=== PATIENT | female | born 1985 | race Caucasian/White ===

== ENCOUNTER 2017-01-18 13:26 | Emergency (ER) | payer SELFPAY ==
[~2017-01-18] VITALS: Ht 157.5 cm; Wt 76.0 kg
[2017-01-18 13:28] VITALS: Ht 157.5 cm; Wt 76.0 kg
[2017-01-18] MEDS ORDERED: CEPH-443 PO (13:54)
[2017-01-18] MEDS ORDERED: BACTDS PO (13:54)
[2017-01-18] MEDS ORDERED: IBUP-1542 PO (13:55)
[2017-01-18] MEDS ORDERED: LIDOCAINE 1% (MDV) 20 ML INJ SC ONE (14:00)
--- NOTE | 2017-01-18 14:03 | ERD ---
ER Documentation Chief Complaint Date/Time DATE: 01/18/17 TIME: 13:55 Chief Complaint RFA ABCSYLVIA HPI Patient is a 31-year-old female with past medical history of IV drug use presents to the emergency department for concerns of an abscess to her right forearm. Patient states that the abscess is been growing in size over the last few days. Patient states that she did attempt to drain the abscess herself. Patient states that she reports numerous abscesses in the past all over her body.. Patient states that she was admitted 2 weeks ago for IV antibiotics at [facility]. Patient states she left AMA because she was having "withdrawal symptoms." She denies any fevers, chills, nausea, vomiting or loss consciousness. Patient states she was last given her tetanus shot 2 weeks ago. She does report recent drug use. ROS All systems reviewed and are negative except as per history of present illness. Medications Home Meds Active Scripts Ibuprofen* (Motrin*) 600 Mg Tab, 600 MG PO Q6, #30 TAB Prov:JOSE TONY PA-C 01/18/17 Cephalexin* (Keflex*) 500 Mg Capsule, 500 MG PO QID for 10 Days, CAP Prov:JOSE TONY PA-C 01/18/17 Sulfamethoxazole-Trimethoprim* (Bactrim* DS) 800-160 Mg Tab, 1 TAB PO BID for 10 Days, TAB Prov:JOSE TONY PA-C 01/18/17 Physical Exam Vitals Vital Signs Date Time Temp Pulse Resp B/P Pulse Ox O2 Delivery O2 Flow Rate FiO2 01/18/17 13:28 98.1 99 20 117/85 99 Physical Exam GENERAL: Well-developed, well-nourished female. Appears in no acute distress. HEAD: Normocephalic, atraumatic. EYES: Pupils are equally reactive bilaterally. EOMs grossly intact. No conjunctival erythema. ENT: Moist mucous membranes. No uvula deviation. No kissing tonsils. NECK: Supple. No meningismus. Normal range of motion of the neck. LUNG: Clear to auscultation bilaterally. No rhonchi, wheezing, rales or coarse breath sounds. HEART: Regular rate and rhythm. No murmurs, rubs or gallops. EXTREMITIES: Equal pulses bilaterally. No peripheral clubbing, cyanosis or edema. No unilateral leg swelling. NEUROLOGIC: Alert and oriented. Moving all four extremities without any difficulty. Normal speech. Steady gait. SKIN: Numerous scars noted throughout the patient's body consistent with old injected areas. 3 cm circular, erythematous, fluctuant mass noted on patient's right forearm, dorsal aspect. Tender to palpation. Actively bleeding. No warmth. No lymphatic streaking. Results 24 hrs Current Medications Medications (Trade) Dose Ordered Sig/Yolette Route PRN Reason Start Time Stop Time Status Last Admin Dose Admin Lidocaine (Xylocaine 1% (Mdv) 20 ml) 20 ml ONCE ONCE SC 01/18/17 14:00 01/18/17 14:01 DC Trimethoprim/ Sulfamethoxazole (Bactrim (Ds)) 1 tab ONCE ONCE PO 01/18/17 14:30 01/18/17 14:31 DC 01/18/17 14:28 Cephalexin (Keflex) 500 mg ONCE ONCE PO 01/18/17 14:30 01/18/17 14:31 DC 01/18/17 14:28 Procedures/MDM ED COURSE: The patient was stable throughout ED course. I kept the patient and/or family informed of laboratory and diagnostic imaging results throughout the ED course. INCISION AND DRAINAGE: The patient was verbally consented prior to procedure. Patient was explained the risks, benefits and alternatives to this procedure. Location: Right forearm Abscess size: 3 cm Anesthesia: local 1% lidocaine, 4 cc Preparation: The area was prepped in a sterile fashion using betadine x3 cleanses. A sterile field was prepared. Technique: A sterile 11 blade scalpel was used to make a 1 cm linear incision into the abscess. Procedure: A midline abscess incision was made using a sterile scalpel in a linear fashion. Purulent material was expressed with direct pressure. Blunt probing was used to break up loculations. Bleeding was minimal. Packing: half iodoform packing was placed into the wound. The patient tolerated the procedure well with no complications. The wound was dressed in sterile gauze. The patient was neurovascularly intact post- procedure. Post-procedural wound care was discussed with the patient. MEDICAL DECISION MAKING: This is a 31-year-old female with a history of IV drug use who presents emergency department with an abscess to her right forearm. Vital signs were reviewed. Patient was afebrile. Incision and drainage was performed here in the emergency department. Purulent discharge was expressed from the affected site. The affected site was packed using half an inch iodoform packing. Tetanus is up-to-date. Patient was given her first dose of Bactrim and Keflex here in the emergency department. At this time, patient's presentation is most consistent with abscess. Low suspicion for deep space infection, flexor tenosynovitis, cellulitis. lymphangitis, osteomyelitis. I had a discussion at length with the patient about the importance of enrolling herself in a rehab facility to help her with her drug addiction. Rehab information provided to the patient. Patient advised to abstain from drug use. Patient advised to complete full course of antibiotics. PRESCRIPTIONS: Bactrim, Keflex, ibuprofen DISCHARGE: At this time, the patient is stable for discharge and outpatient management. Post-procedural wound care was discussed with the patient. Wound care discussed with the patient. The patient has been advised to return to the ER in 2 days for a wound check and removal of packing. I have instructed the patient to promptly return to the ER for any new or worsening symptoms including increasing pain, fever, warmth, redness or swelling. The patient and/ or family expressed understanding of and agreement with this plan. All questions were answered. Home care instructions were provided. Departure Diagnosis: Primary Impression: Encounter for incision and drainage procedure Additional Impression: Abscess Condition: Stable Patient Instructions: Abscess, Incision And Drainage Referrals: [facility] YOU HAVE RECEIVED A MEDICAL SCREENING EXAM AND THE RESULTS INDICATE THAT YOU DO NOT HAVE A CONDITION THAT REQUIRES URGENT TREATMENT IN THE EMERGENCY DEPARTMENT. FURTHER EVALUATION AND TREATMENT OF YOUR CONDITION CAN WAIT UNTIL YOU ARE SEEN IN YOUR DOCTORS OFFICE WITHIN THE NEXT 1-2 DAYS. IT IS YOUR RESPONSIBILITY TO MAKE AN APPOINTMENT FOR FOLOW-UP CARE. IF YOU HAVE A PRIMARY DOCTOR --you should call your primary doctor and schedule an appointment IF YOU DO NOT HAVE A PRIMARY DOCTOR YOU CAN CALL OUR PHYSICIAN REFERRAL HOTLINE AT IF YOU CAN NOT AFFORD TO SEE A PHYSICIAN YOU CAN CHOSE FROM THE FOLLOWING [facility] [address] [facility] [address] [facility] [address] [facility] [address] [facility] [address] [facility]. [facility] [address] [facility]. [facility] YOU HAVE RECEIVED A MEDICAL SCREENING EXAM AND THE RESULTS INDICATE THAT YOU DO NOT HAVE A CONDITION THAT REQUIRES URGENT TREATMENT IN THE EMERGENCY DEPARTMENT. FURTHER EVALUATION AND TREATMENT OF YOUR CONDITION CAN WAIT UNTIL YOU ARE SEEN IN YOUR DOCTORS OFFICE WITHIN THE NEXT 1-2 DAYS. IT IS YOUR RESPONSIBILITY TO MAKE AN APPOINTMENT FOR FOLOW-UP CARE. IF YOU HAVE A PRIMARY DOCTOR --you should call your primary doctor and schedule and appointment IF YOU DO NOT HAVE A PRIMARY DOCTOR YOU CAN CALL OUR PHYSICIAN REFERRAL HOTLINE AT . IF YOU CAN NOT AFFORD TO SEE A PHYSICIAN YOU CAN CHOSE FROM THE FOLLOWING [facility] INSTITUTIONS: [facility] [address] [place] [address] [facility] [address] [place] [address] [facility] [address] [place] [address] Additional Instructions: Stop using IV drugs. Wound recheck advised in 2 day. Return to the emergency department for any new or worsening symptoms including swelling, redness, warmth, chills. Call your primary care doctor TOMORROW for an appointment during the next 1-2 days.See the doctor sooner or return here if your condition worsens before your appointment time. JOSE TONY PA-C Jan 18, 2017 14:02
[2017-01-18] MEDS ORDERED: TRIMETHOPRIM/SULFAMETHOX (DS) TAB PO ONE (14:30)
[2017-01-18] MEDS ORDERED: CEPHALEXIN 500 MG CAP PO ONE (14:30)
== END 2017-01-18 14:30 | disposition home or self-care (01) ==
LOC: FTE 13:26
DX: L02.413 Cutaneous abscess of right upper limb (principal)

== ENCOUNTER 2018-10-24 22:07 | Inpatient (IN) | payer BC ==
[~2018-10-24] VITALS: Ht 172.7 cm; Wt 68.2 kg
[~2018-10-24 22:07] MED LIST: BACTDS PO; CEPH-443 PO; IBUP-1542 PO
[2018-10-24] MEDS ORDERED: SODIUM CHLORIDE 0.9% 1L BAG IV* STA (23:07)
[2018-10-24] MEDS ORDERED: ONDANSETRON 4 MG INJ IV STA (23:07)
[2018-10-24] MEDS ORDERED: morphine 4 MG/ML VIAL IV STA (23:07)
--- NOTE | 2018-10-24 23:16 | ERD ---
ER Documentation Chief Complaint Chief Complaint L foot abscess/swelling/pain x 1week ROS All systems reviewed and are negative except as per history of present illness. Medications Home Meds Active Scripts Ibuprofen* (Motrin*) 600 Mg Tab, 600 MG PO Q6, #30 TAB Prov:JENNY TONYKELLY ALEGRE 01/18/17 Cephalexin* (Keflex*) 500 Mg Capsule, 500 MG PO QID for 10 Days, CAP Prov:JENNY TONYKELLY ALEGRE 01/18/17 Sulfamethoxazole-Trimethoprim* (Bactrim* DS) 800-160 Mg Tab, 1 TAB PO BID for 10 Days, TAB Prov:FRANCIS TONYAUGIE ALEGRE 01/18/17 Allergies Allergies: Coded Allergies: No Known Allergy (Unverified , 10/24/18) PMhx/Soc Medical and Surgical Hx: pt denies Medical Hx, pt denies Surgical Hx Hx Alcohol Use: Yes (occassional) Hx Substance Use: Yes (heroin, meth) Hx Tobacco Use: No Smoking Status: Current some day smoker Physical Exam Vitals Vital Signs Date Temp Pulse Resp B/P (MAP) Pulse Ox O2 O2 Flow FiO2 Time Delivery Rate 10/25/18 98 16 113/53 100 Room Air 03:30 (73) 10/25/18 96 20 105/52 98 Room Air 01:30 (69) 10/24/18 99.5 115 18 110/75 98 22:17 (87) Physical Exam Const: No acute distress Head: Atraumatic Eyes: Normal Conjunctiva ENT: Normal External Ears, Nose and Mouth. Neck: Full range of motion. No meningismus. Resp: Clear to auscultation bilaterally Cardio: Regular rate and rhythm, no murmurs Abd: Soft, non tender, non distended. Normal bowel sounds Skin: No petechiae or rashes Back: No midline or flank tenderness Ext: No cyanosis, or edema Neur: Awake and alert Psych: Normal Mood and Affect Result Diagram: 10/25/18 0010 10/25/18 0010 Results 24 hrs Laboratory Tests Test 10/25/18 00:10 10/25/18 00:24 White Blood Count 17.6 10^3/ul Red Blood Count 4.08 10^6/ul Hemoglobin 10.5 g/dl Hematocrit 31.9 % Mean Corpuscular Volume 78.2 fl Mean Corpuscular Hemoglobin 25.7 pg Mean Corpuscular Hemoglobin Concent 32.9 g/dl Red Cell Distribution Width 13.1 % Platelet Count 319 10^3/UL Mean Platelet Volume 9.2 fl Immature Granulocytes % 0.500 % Neutrophils % 78.5 % Lymphocytes % 11.5 % Monocytes % 8.9 % Eosinophils % 0.3 % Basophils % 0.3 % Nucleated Red Blood Cells % 0.0 /100WBC Immature Granulocytes # 0.090 10^3/ul Neutrophils # 13.8 10^3/ul Lymphocytes # 2.0 10^3/ul Monocytes # 1.6 10^3/ul Eosinophils # 0.1 10^3/ul Basophils # 0.1 10^3/ul Nucleated Red Blood Cells # 0.0 10^3/ul Sodium Level 134 mmol/L Potassium Level 3.6 mmol/L Chloride Level 95 mmol/L Carbon Dioxide Level 27 mmol/L Anion Gap 12 Blood Urea Nitrogen 11 mg/dl Creatinine 0.62 mg/dl Est Glomerular Filtrat Rate mL/min > 60 mL/min Glucose Level 137 mg/dl Lactic Acid Level 1.1 mmol/L Calcium Level 9.0 mg/dl Total Bilirubin 0.7 mg/dl Direct Bilirubin 0.00 mg/dl Indirect Bilirubin 0.7 mg/dl Aspartate Amino Transf (AST/SGOT) 21 IU/L Alanine Aminotransferase (ALT/SGPT) 23 IU/L Alkaline Phosphatase 98 IU/L Total Protein 7.4 g/dl Albumin 3.6 g/dl Globulin 3.80 g/dl Albumin/Globulin Ratio 0.94 POC Venous Lactate 1.1 mmol/L Current Medications Medications Dose Sig/Yolette Start Time Status Last (Trade) Ordered Route PRN Stop Time Admin Dose Reason Admin Sodium 2,050 ml BOLUS OVER 3 10/24/18 DC 10/25/18 Chloride HOURS STAT 23:07 00:25 (NS) IV* 10/24/18 23:16 Vancomycin 250 ml @ ONCE ONCE 10/24/18 DC 10/25/18 HCl 125 mls/hr IVPB 23:30 02:36 10/25/18 01:29 Piperacillin 100 ml @ ONCE ONCE 10/24/18 DC 10/25/18 Sod/ 200 mls/hr IVPB 23:30 00:25 Tazobactam 10/24/18 23:59 Sod Morphine 4 mg ONCE STAT 10/24/18 DC Sulfate IV 23:07 (morphine) 10/25/18 00:22 Ondansetron 4 mg ONCE STAT 10/24/18 DC 10/25/18 HCl (Zofran IV 23:07 00:24 Inj) 10/24/18 23:16 1 mg ONCE STAT 10/25/18 DC 10/25/18 Hydromorphone IV 00:20 00:25 HCl 10/25/18 00:22 (Dilaudid) 50 mg ONCE ONCE 10/25/18 DC 10/25/18 Diphenhydrami IV 01:00 02:02 ne HCl 10/25/18 01:01 (Benadryl) Ketorolac 30 mg ONCE ONCE 10/25/18 DC 10/25/18 Tromethamine IV 01:35 01:37 (Toradol) 10/25/18 01:36 Ketorolac 30 mg STK-MED 10/25/18 DC Tromethamine ONCE .ROUTE 01:35 (Toradol) 10/25/18 01:36 LYRIC SANDOVAL Oct 24, 2018 23:16
[2018-10-24] MEDS ORDERED: VANCOMYCIN 1 GM (PMX) 250 ML IVPB ONE (23:30)
[2018-10-24] MEDS ORDERED: PIPER-TAZO 3.375 GM IV (PMX) 100 ML IVPB ONE (23:30)
[2018-10-25] MEDS ORDERED: HYDROmorphONE 2 MG/ML SYG IV STA (00:20)
[2018-10-25] MEDS ORDERED: DIPHENHYDRAMINE 50 MG INJ IV ONE (01:00)
[2018-10-25] MEDS ORDERED: KETOROLAC 30 MG INJ ONE (01:35)
[2018-10-25] MEDS ORDERED: KETOROLAC 30 MG INJ IV ONE (01:35)
[2018-10-25] MEDS ORDERED: ONDANSETRON 4 MG INJ IV PRN (05:00)
[2018-10-25] MEDS ORDERED: NACL 0.9% 3 ML SYG IV SCH (05:00)
[2018-10-25] MEDS ORDERED: HYDROCODONE/APAP (5/325) TAB PO PRN ×2 (05:00)
[2018-10-25] MEDS ORDERED: VANCOMYCIN IV PER PHARMACY XX SCH (05:00)
[2018-10-25] MEDS ORDERED: ACETAMINOPHEN 325 MG TAB PO PRN (05:00)
[2018-10-25] MEDS: SOD CHLORIDE 0.9% 1,000 ML IV SCH ×3 (05:19→17:31)
--- NOTE | 2018-10-25 05:21 | ERD ---
ER Documentation Chief Complaint Chief Complaint L foot abscess/swelling/pain x 1week HPI The patient is a 33-year-old female, presenting to the ER because of left foot swelling and redness for 1 week, after she injected heroin and amphetamine. She denies fever, chills, neck pain, chest pain, dyspnea, abdominal pain, vomiting, dizzy, diarrhea. She does IV drug, smokes, denies drinking Past medical/surgical history: None ROS All systems reviewed and are negative except as per history of present illness. Medications Home Meds Active Scripts Ibuprofen* (Motrin*) 600 Mg Tab, 600 MG PO Q6, #30 TAB Prov:JOSE TONY PA-C 01/18/17 Cephalexin* (Keflex*) 500 Mg Capsule, 500 MG PO QID for 10 Days, CAP Prov:JOSE TONY PA-C 01/18/17 Sulfamethoxazole-Trimethoprim* (Bactrim* DS) 800-160 Mg Tab, 1 TAB PO BID for 10 Days, TAB Prov:JOSE TONY PA-C 01/18/17 Allergies Allergies: Coded Allergies: No Known Allergy (Unverified , 10/24/18) PMhx/Soc Medical and Surgical Hx: pt denies Surgical Hx History of Surgery: No Anesthesia Reaction: No Hx Neurological Disorder: No Hx Respiratory Disorders: No Hx Cardiac Disorders: No Hx Psychiatric Problems: Yes (SUBSTANCE ABUSE) Hx Miscellaneous Medical Probl: No Hx Alcohol Use: Yes (ocassional) Hx Substance Use: Yes (heroin, meth) Hx Tobacco Use: No Smoking Status: Former smoker Physical Exam Vitals Vital Signs Date Temp Pulse Resp B/P (MAP) Pulse Ox O2 O2 Flow FiO2 Time Delivery Rate 10/25/18 98 16 113/53 100 Room Air 03:30 (73) 10/25/18 96 20 105/52 98 Room Air 01:30 (69) 10/24/18 99.5 115 18 110/75 98 22:17 (87) Physical Exam Const: No acute distress. Head: Atraumatic. Eyes: Normal Conjunctiva. ENT: Normal External Ears, Nose and Mouth. Neck: Full range of motion. No meningismus. Resp: Clear to auscultation bilaterally. Cardio: Regular rate and rhythm. Abd: Soft, non distended, normal bowel sounds, non tender. Skin: No petechiae or rashes. Back: No midline or flank tenderness. Ext: Left foot is edematous, erythematous, warm to touch, no calf tenderness Neur: Awake and alert. No focal deficit Psych: Normal Mood and Affect. Result Diagram: 10/25/18 0010 10/25/18 0010 Results 24 hrs Laboratory Tests Test 10/25/18 00:10 10/25/18 00:24 White Blood Count 17.6 10^3/ul Red Blood Count 4.08 10^6/ul Hemoglobin 10.5 g/dl Hematocrit 31.9 % Mean Corpuscular Volume 78.2 fl Mean Corpuscular Hemoglobin 25.7 pg Mean Corpuscular Hemoglobin Concent 32.9 g/dl Red Cell Distribution Width 13.1 % Platelet Count 319 10^3/UL Mean Platelet Volume 9.2 fl Immature Granulocytes % 0.500 % Neutrophils % 78.5 % Lymphocytes % 11.5 % Monocytes % 8.9 % Eosinophils % 0.3 % Basophils % 0.3 % Nucleated Red Blood Cells % 0.0 /100WBC Immature Granulocytes # 0.090 10^3/ul Neutrophils # 13.8 10^3/ul Lymphocytes # 2.0 10^3/ul Monocytes # 1.6 10^3/ul Eosinophils # 0.1 10^3/ul Basophils # 0.1 10^3/ul Nucleated Red Blood Cells # 0.0 10^3/ul Sodium Level 134 mmol/L Potassium Level 3.6 mmol/L Chloride Level 95 mmol/L Carbon Dioxide Level 27 mmol/L Anion Gap 12 Blood Urea Nitrogen 11 mg/dl Creatinine 0.62 mg/dl Est Glomerular Filtrat Rate mL/min > 60 mL/min Glucose Level 137 mg/dl Lactic Acid Level 1.1 mmol/L Calcium Level 9.0 mg/dl Total Bilirubin 0.7 mg/dl Direct Bilirubin 0.00 mg/dl Indirect Bilirubin 0.7 mg/dl Aspartate Amino Transf (AST/SGOT) 21 IU/L Alanine Aminotransferase (ALT/SGPT) 23 IU/L Alkaline Phosphatase 98 IU/L Total Protein 7.4 g/dl Albumin 3.6 g/dl Globulin 3.80 g/dl Albumin/Globulin Ratio 0.94 POC Venous Lactate 1.1 mmol/L Current Medications Medications Dose Sig/Yolette Start Time Status Last (Trade) Ordered Route PRN Stop Time Admin Dose Reason Admin Sodium 2,050 ml BOLUS OVER 3 10/24/18 DC 10/25/18 Chloride HOURS STAT 23:07 00:25 (NS) IV* 10/24/18 23:16 Vancomycin 250 ml @ ONCE ONCE 10/24/18 DC 10/25/18 HCl 125 mls/hr IVPB 23:30 02:36 10/25/18 01:29 Piperacillin 100 ml @ ONCE ONCE 10/24/18 DC 10/25/18 Sod/ 200 mls/hr IVPB 23:30 00:25 Tazobactam 10/24/18 23:59 Sod Morphine 4 mg ONCE STAT 10/24/18 DC Sulfate IV 23:07 (morphine) 10/25/18 00:22 Ondansetron 4 mg ONCE STAT 10/24/18 DC 10/25/18 HCl (Zofran IV 23:07 00:24 Inj) 10/24/18 23:16 1 mg ONCE STAT 10/25/18 DC 10/25/18 Hydromorphone IV 00:20 00:25 HCl 10/25/18 00:22 (Dilaudid) 50 mg ONCE ONCE 10/25/18 DC 10/25/18 Diphenhydrami IV 01:00 02:02 ne HCl 10/25/18 01:01 (Benadryl) Ketorolac 30 mg ONCE ONCE 10/25/18 DC 10/25/18 Tromethamine IV 01:35 01:37 (Toradol) 10/25/18 01:36 Ketorolac 30 mg STK-MED 10/25/18 DC Tromethamine ONCE .ROUTE 01:35 (Toradol) 10/25/18 01:36 Sodium 1,000 ml @ Q10H IV 10/25/18 Chloride 100 mls/hr 04:45 10/25/18 23:00 IV Flush 3 ml PER 10/25/18 (NS 3 ml) PROTOCOL IV 05:00 Ondansetron 4 mg Q6H PRN 10/25/18 HCl (Zofran IV NAUSEA 05:00 Inj) AND/OR VOMITING 650 mg Q6H PRN 10/25/18 Acetaminophen PO PAIN 05:00 (Tylenol LEVEL 1-3 OR Tab) FEVER 1 tab Q6H PRN 10/25/18 Acetaminophen PO MODERATE 05:00 / PAIN LEVEL Hydrocodone 4-6 Bitart ([place] (5/325)) 2 tab Q6H PRN 10/25/18 Acetaminophen PO SEVERE 05:00 / PAIN LEVEL Hydrocodone 7-10 Bitart ([place] (5/325)) Heparin 5,000 unit Q12 SC 10/25/18 Sodium 09:00 (Porcine) (Heparin (5000 Units/1ml)) Vancomycin VANCOMYCIN PER 10/25/18 HCl (Vanco PER PHARMACY PROTOCOL XX 05:00 Iv Per Pharmacy) Cefepime HCl 50 ml @ Q12 IVPB 10/25/18 100 mls/hr 09:00 Vancomycin 250 ml @ Q8H IVPB 10/25/18 HCl 125 mls/hr 10:00 Procedures/MDM [place] [address] Radiology Main Line: [phone] DIAGNOSTIC IMAGING REPORT Patient: NIC RODAS : 1985 Age: 33 Sex: F MR #: [id number] DOS: 10/24/18 2307 Ordering MD: LYRIC SANDOVAL [employer] Location: E/R Room/Bed: PROCEDURE: X-ray left ankle. CLINICAL INDICATION: Swelling and discoloration of the left ankle. TECHNIQUE: AP, lateral and oblique views of the left ankle. COMPARISON: None. FINDINGS: Soft tissue swelling over the anterior left ankle and dorsum of the midfoot and partially visualized forefoot. There is no evident acute fracture. IMPRESSION: Soft tissue swelling, without acute fracture. RPTAT: UU Physician Josee Date Time Electronically viewed and signed by Physician Josee on 10/25/2018 01:34 RS/ CC: LYRIC SANDOVAL [id number] [place] [address] Radiology Main Line: [phone] DIAGNOSTIC IMAGING REPORT Patient: NIC RODAS : 1985 Age: 33 Sex: F MR #: [id number] DOS: 10/24/182306 Ordering MD: LYRIC SANDOVAL [employer] Location: FTE Room/Bed: PROCEDURE: Ultrasound examination of the left lower extremity with Doppler. CLINICAL INDICATION: Left leg pain and swelling. TECHNIQUE: Multiple sonographic images of the left lower extremity veins were performed with ritter scale and color Doppler. COMPARISON: None. FINDINGS: The left common femoral, superficial femoral and popliteal veins demonstrate normal color flow, waveforms, compression and response to augmentation. There is no evidence of deep venous thrombosis. Compression of the left common femoral vein could not be performed due to pain. The left peroneal vein is not visualized. IMPRESSION: No evidence of deep venous thrombosis within the left lower extremity. .Michael Kline MD, MD Date Time Electronically viewed and signed by .Michael Kline MD, on 10/24/2018 23:51 .T/ CC: LYRIC SANDOVAL [phone] [place] [address] Radiology Main Line: [phone] DIAGNOSTIC IMAGING REPORT Patient: NIC RODAS : 1985 Age: 33 Sex: F MR #: [id number] DOS: 10/24/182306 Ordering MD: LYRIC SANDOVAL [employer] Location: E/R Room/Bed: PROCEDURE: X-ray left foot. CLINICAL INDICATION: Swelling and discoloration of the left foot. TECHNIQUE: AP, lateral and oblique views of the left foot. COMPARISON: None. FINDINGS: Soft tissue swelling over the anterior ankle and dorsum of the midfoot. Soft tissue swelling is seen at the bilateral and dorsum of the forefoot. No evident acute fracture. IMPRESSION: Soft tissue swelling, without acute fracture. RPTAT: UU Physician Josee Date Time Electronically viewed and signed by Physician Josee on 10/25/2018 01:36 RS/ CC: LYRIC SANDOVAL [id number] [place] [address] Radiology Main Line: [phone] DIAGNOSTIC IMAGING REPORT Patient: NIC RODAS : 1985 Age: 33 Sex: F MR #: [id number] DOS: 10/24/18 2307 Ordering MD: LYRIC SANDOVAL [employer] Location: E/R Room/Bed: PROCEDURE: XR Tibia and Fibula. CLINICAL INDICATION: Left leg swelling. TECHNIQUE: AP, lateral and oblique views of the left tibia and fibula were obtained. COMPARISON: No prior studies are available for comparison. FINDINGS: There is normal mineralization and alignment. No fracture or osseous lesion is identified. The joints are unremarkable. There are normal soft tissues without evidence of soft tissue swelling. IMPRESSION: 1. Normal radiographs of the left tibia and fibula. No evidence of fracture. RPTAT: HGAS .Adryan Farris MD, MD Date Time Electronically viewed and signed by .Adryan Farris MD, on 10/25/2018 01:40 .S/ CC: LYRIC SANDOVAL [phone] Pending Consultation: I did text and entered CPOE the on-call general surgeon Dr. Atkins at 2:30 AM regarding the patient MEDICAL MAKING DECISION: The patient is a 33-year-old female, presenting with acute left foot cellulitis, suspected early abscess. She was treated with Zosyn IV, vancomycin IV, 30 mL normosaline per kilogram IV , Dilaudid 1 mg IV for pain, Zofran formula IV for nausea with good response The differential diagnoses considered include but are not limited to necrotizing fasciitis, foreign body, DVT Departure Diagnosis: Primary Impression: Cellulitis of left foot Additional Impression: Anemia Condition: Stable Comments I discussed the findings with the patient. I discussed the patient with the hospitalist Dr. Dias at 2:30 AM. who was made aware of the lab, the treatment, the patient condition. The patient is admitted to [facility] Disclaimer: Inadvertent spelling and grammatical errors are likely due to EHR/dictation software use and do not reflect on the overall quality of patient care. Also, please note that the electronic time recorded on this note does not necessarily reflect the actual time of the patient encounter. AUGUSTINE STRAUSS MD Oct 25, 2018 05:21
[2018-10-25 08:15] VITALS: BP 100/51; PULSE 98; RESP 18
[2018-10-25] MEDS: CEFEPIME 1GM/50 ML (PMX) 50 ML IVPB SCH ×2 (08:25→21:04)
[2018-10-25] MEDS: HEPARIN 5,000 UNIT/1 ML VIAL SC SCH ×3 (08:26→21:04)
[2018-10-25 08:30] VITALS: Ht 172.7 cm; Wt 68.2 kg
[2018-10-25] MEDS ORDERED: METHADONE 10 MG TAB PO ONE (09:00)
--- NOTE | 2018-10-25 09:07 | HP ---
Date/Time of Note Date/Time of Note DATE: 10/25/18 TIME: 09:03 Assessment/Plan VTE Prophylaxis Pharmacological prophylaxis: heparin Lines/Catheters IV Catheter Type (from Nrsg): Mid Line Assessment/Plan Assessment/Plan 1. Left foot abscess: Patient was injecting IV drug on her foot -IV antibiotic -Podiatry and ID consult 2. IV drug use -Monitor for withdrawal -Started methadone Result Diagram: 10/25/18 0010 10/25/18 0010 Results 24hrs Laboratory Tests Test 10/25/18 00:10 10/25/18 00:24 White Blood Count 17.6 H Red Blood Count 4.08 L Hemoglobin 10.5 L Hematocrit 31.9 L Mean Corpuscular Volume 78.2 L Mean Corpuscular Hemoglobin 25.7 L Mean Corpuscular Hemoglobin Concent 32.9 Red Cell Distribution Width 13.1 Platelet Count 319 Mean Platelet Volume 9.2 Immature Granulocytes % 0.500 H Neutrophils % 78.5 H Lymphocytes % 11.5 L Monocytes % 8.9 Eosinophils % 0.3 Basophils % 0.3 Nucleated Red Blood Cells % 0.0 Immature Granulocytes # 0.090 H Neutrophils # 13.8 H Lymphocytes # 2.0 Monocytes # 1.6 H Eosinophils # 0.1 Basophils # 0.1 Nucleated Red Blood Cells # 0.0 Sodium Level 134 L Potassium Level 3.6 Chloride Level 95 L Carbon Dioxide Level 27 Anion Gap 12 Blood Urea Nitrogen 11 Creatinine 0.62 Est Glomerular Filtrat Rate mL/min > 60 Glucose Level 137 Lactic Acid Level 1.1 Calcium Level 9.0 Total Bilirubin 0.7 Direct Bilirubin 0.00 Indirect Bilirubin 0.7 Aspartate Amino Transf (AST/SGOT) 21 Alanine Aminotransferase (ALT/SGPT) 23 Alkaline Phosphatase 98 Total Protein 7.4 Albumin 3.6 Globulin 3.80 H Albumin/Globulin Ratio 0.94 POC Venous Lactate 1.1 HPI/ROS Admit Date/Time Admit Date/Time Oct 25, 2018 at 02:48 Hx of Present Illness This is a 33-year-old female with a history of meds and IV drug use who presents the ER complaining of left foot swelling and redness. She states she was inject ing on that foot. Last use of heroin was yesterday and patient thinks that she is also going through withdrawal When she presented to ER, she was afebrile. WBC almost 18,000. X-ray shows soft tissue swelling. Venous study negative for DVT PMH/Family/Social Past Medical History Medical History: other (See HPI) Medications Current Medications Sodium Chloride 1,000 ml @ 100 mls/hr Q10H IV Last administered on 10/25/18at 05:19; Admin Dose 100 MLS/HR; Start 10/25/18 at 04:45; Stop 10/25/18 at 23:00 IV Flush (NS 3 ml) 3 ml PER PROTOCOL IV ; Start 10/25/18 at 05:00 Ondansetron HCl (Zofran Inj) 4 mg Q6H PRN IV NAUSEA AND/OR VOMITING; Start 10/25/18 at 05:00 Acetaminophen (Tylenol Tab) 650 mg Q6H PRN PO PAIN LEVEL 1-3 OR FEVER; Start 10/25/18 at 05:00 Acetaminophen/ Hydrocodone Bitart ([place] (5/325)) 1 tab Q6H PRN PO MODERATE PAIN LEVEL 4-6; Start 10/25/18 at 05:00 Acetaminophen/ Hydrocodone Bitart ([place] (5/325)) 2 tab Q6H PRN PO SEVERE PAIN LEVEL 7-10 Last administered on 10/25/18at 06:54; Admin Dose 2 TAB; Start 10/25/18 at 05:00 Heparin Sodium (Porcine) (Heparin (5000 Units/1ml)) 5,000 unit Q12 SC Last administered on 10/25/18at 08:26; Admin Dose 5,000 UNIT; Start 10/25/18 at 09:00 Vancomycin HCl (Vanco Iv Per Pharmacy) VANCOMYCIN PER PHARMACY PER PROTOCOL XX ; Start 10/25/18 at 05:00 Cefepime HCl 50 ml @ 100 mls/hr Q12 IVPB Last administered on 10/25/18at 08:25; Admin Dose 100 MLS/HR; Start 10/25/18 at 09:00 Vancomycin HCl 250 ml @ 125 mls/hr Q8H IVPB ; Start 10/25/18 at 10:00 Methadone HCl (Methadone) 20 mg Q8 PO ; Start 10/25/18 at 14:00 Coded Allergies: No Known Allergy (Unverified , 10/24/18) Past Surgical History Past Surgical Hx: other (See HPI) Family History Significant Family History: no pertinent family hx Social History Alcohol Use: none Smoking Status: Former smoker Drug Use: none Exam/Review of Systems Vital Signs Vitals Vital Signs Date Temp Pulse Resp B/P (MAP) Pulse Ox O2 O2 Flow FiO2 Time Delivery Rate 10/25/18 98.3 98 18 100/51 99 08:15 (67) 10/25/18 Room Air 06:32 Exam Constitutional: distress Head: normocephalic, atraumatic Eyes: PERRL Respiratory: clear to auscultation, normal air movement Cardiovascular: regular rate and rhythm Gastrointestinal: soft Extremities: other (Left foot swollen and is erythematous and tender to touch. There is an area what appears to be abscess formation at the site of IV injection) ELIF ROCA MD Oct 25, 2018 09:07
[2018-10-25] MEDS: VANCOMYCIN 1 GM 250 ML IVPB SCH ×2 (10:04→17:30)
--- NOTE | 2018-10-25 11:00 | CONS ---
DATE OF ADMISSION: 10/25/2018 DATE OF CONSULTATION: 10/25/2018 TYPE OF CONSULTATION: Infectious disease. REASON FOR CONSULTATION: Antibiotic management. HISTORY OF PRESENT ILLNESS: Maria Del Rosario Fam is a 33-year-old female who was brought in with left fo ot abscess and is being seen for antibiotic management. The patient presents to the Emergency Room w ith left foot swelling and redness of 1 week duration after she injected heroin and amphetamines into her foot. She denies fever, chills, neck pain or chest pain. She does IV drugs, smokes and denies drinking. Her past history includes substance abuse of heroin and then amphetamine. FAMILY HISTORY: Noncontributory. SOCIAL HISTORY: She uses drugs. She does not smoke. She was a former smoker. She drinks occasiona lly. ALLERGIES: None to penicillin, sulfa or foods. MEDICATIONS: Per chart. REVIEW OF SYSTEMS: As per HPI. PHYSICAL EXAMINATION: GENERAL: The patient is well-developed, well-nourished female, alert, responsive, in no acute distre ss. VITAL SIGNS: Stable. She is afebrile. SKIN: Without generalized rash. HEENT: Within normal limits. NECK: Supple. LYMPH NODES: None palpable. CHEST: Decreased breath sounds at the bases. HEART: Without murmur or gallop. ABDOMEN: Soft, nontender, without organosplenomegaly or masses. EXTREMITIES: Left foot is edematous, erythematous, warm to touch. RECTAL AND GENITAL: Deferred. NEUROLOGIC: No focal neurological abnormality. ANCILLARY LABORATORY DATA: White count is 17.6 with 79% polys, H and H of 10.5 and 31.9, platelet co unt 319,000. BUN and creatinine 11/0.62. Patient was started on vancomycin and Zosyn. IMAGING: X-ray of the left ankle shows soft tissue swelling without acute fracture. Ultrasound of t he left lower extremity shows no evidence of deep vein thrombophlebitis. X-ray of the left foot show s soft tissue swelling is noted. Normal radiographs of the left tibia and fibula, no evidence of fra cture. IMPRESSION AND PLAN: The patient was started on vancomycin and Zosyn. Patient should be seen by pod iatry. Blood cultures are pending. Urine cultures, wound cultures pending. I will dictate my findings to the hospitalists. Dictated By: KEEGAN GUZMÁN MD, JD/NIGEL Conf#: [id number] [facility]#: [id number] CC: ELIF ROCA MD;*End*
--- NOTE | 2018-10-25 12:26 | CONS ---
Date/Time of Note Date/Time of Note DATE: 10/25/18 TIME: 12:22 Assessment/Plan Assessment/Plan Assessment/Plan IV heroin addiction Patient uses heroin many times a day per her history and by physical findings consistent with numerous popping roman on bilateral lower extremity circumferentially bilateral upper extremity circumferentially We will need to have high-dose of methadone she has been started off in 20 mg e very 8 hours with I believe is a very reasonable dose she looks comfortable no gross evidence that she is withdrawing at this time High risk IV drug abuse sharing needles Suggest hepatitis serologies and HIV if patient will consent Result Diagram: 10/25/18 0010 10/25/18 0010 Results 24hrs Laboratory Tests Test 10/25/18 00:10 10/25/18 00:24 White Blood Count 17.6 H Red Blood Count 4.08 L Hemoglobin 10.5 L Hematocrit 31.9 L Mean Corpuscular Volume 78.2 L Mean Corpuscular Hemoglobin 25.7 L Mean Corpuscular Hemoglobin Concent 32.9 Red Cell Distribution Width 13.1 Platelet Count 319 Mean Platelet Volume 9.2 Immature Granulocytes % 0.500 H Neutrophils % 78.5 H Lymphocytes % 11.5 L Monocytes % 8.9 Eosinophils % 0.3 Basophils % 0.3 Nucleated Red Blood Cells % 0.0 Immature Granulocytes # 0.090 H Neutrophils # 13.8 H Lymphocytes # 2.0 Monocytes # 1.6 H Eosinophils # 0.1 Basophils # 0.1 Nucleated Red Blood Cells # 0.0 Sodium Level 134 L Potassium Level 3.6 Chloride Level 95 L Carbon Dioxide Level 27 Anion Gap 12 Blood Urea Nitrogen 11 Creatinine 0.62 Est Glomerular Filtrat Rate mL/min > 60 Glucose Level 137 Lactic Acid Level 1.1 Calcium Level 9.0 Total Bilirubin 0.7 Direct Bilirubin 0.00 Indirect Bilirubin 0.7 Aspartate Amino Transf (AST/SGOT) 21 Alanine Aminotransferase (ALT/SGPT) 23 Alkaline Phosphatase 98 Total Protein 7.4 Albumin 3.6 Globulin 3.80 H Albumin/Globulin Ratio 0.94 POC Venous Lactate 1.1 Consultation Date/Type/Reason Admit Date/Time Oct 25, 2018 at 02:48 Hx of Present Illness Is a 33-year-old female who is difficult to arouse but when stimulated she does wake up and she is being clear history of present illness. Patient states that she began to develop increasing discomfort erythema in her left foot proximal me 2 days prior to this hospitalization. Patient states that she uses heroin is many times a day as she could obtain it, she shares needles she is HIV negative hepatitis unknown. She had multiple hospitalizations in the past for drug related medical problems. She is too lethargic at this time to give me a detailed history of prior hospitalizations. States she uses other drugs including crystal methamphetamine cocaine she smokes states she does not drink.. She has been in and out of treatment programs in the past but states it was many years ago. Is also been on maintenance therapy with methadone in the past but not in many years also. [place] [address] Unknown whether or not she has had a altercation with police in the past has been anytime incarcerated. In the past when she has been on methadone states she has been on 90 mg daily. He has no acute pain management issue at this time. Presentation her left foot was found to be grossly edematous erythematous with a excoriated scab over the anterior left foot. It is unknown whether or not patient has had similar infections in the past endocarditis osteomyelitis pneumonia she is a poor historian at this time. Mental status waxes and wanes during obtaining the history of present illness Past Medical History Medical History: other (Unknown) Medications Current Medications Sodium Chloride 1,000 ml @ 100 mls/hr Q10H IV Last administered on 10/25/18at 05:19; Admin Dose 100 MLS/HR; Start 10/25/18 at 04:45; Stop 10/25/18 at 23:00 IV Flush (NS 3 ml) 3 ml PER PROTOCOL IV ; Start 10/25/18 at 05:00 Ondansetron HCl (Zofran Inj) 4 mg Q6H PRN IV NAUSEA AND/OR VOMITING; Start 10/25/18 at 05:00 Acetaminophen (Tylenol Tab) 650 mg Q6H PRN PO PAIN LEVEL 1-3 OR FEVER; Start 10/25/18 at 05:00 Acetaminophen/ Hydrocodone Bitart ([place] (5/325)) 1 tab Q6H PRN PO MODERATE P AIN LEVEL 4-6; Start 10/25/18 at 05:00 Acetaminophen/ Hydrocodone Bitart ([place] (5/325)) 2 tab Q6H PRN PO SEVERE PAIN LEVEL 7-10 Last administered on 10/25/18at 06:54; Admin Dose 2 TAB; Start 10/25/18 at 05:00 Heparin Sodium (Porcine) (Heparin (5000 Units/1ml)) 5,000 unit Q12 SC Last administered on 10/25/18at 08:26; Admin Dose 5,000 UNIT; Start 10/25/18 at 09:00 Vancomycin HCl (Vanco Iv Per Pharmacy) VANCOMYCIN PER PHARMACY PER PROTOCOL XX ; Start 10/25/18 at 05:00 Cefepime HCl 50 ml @ 100 mls/hr Q12 IVPB Last administered on 10/25/18at 08:25; Admin Dose 100 MLS/HR; Start 10/25/18 at 09:00 Vancomycin HCl 250 ml @ 125 mls/hr Q8H IVPB Last administered on 10/25/18at 10:04; Admin Dose 125 MLS/HR; Start 10/25/18 at 10:00 Methadone HCl (Methadone) 20 mg Q8 PO ; Start 10/25/18 at 14:00 Miscellaneous Information (*Rx Drug Level Order Reminder*) VANCO TR LEVEL PRIOR... ONCE ONCE XX ; Start 10/26/18 at 09:00; Stop 10/26/18 at 09:01 Allergies: Coded Allergies: No Known Allergy (Unverified , 10/24/18) Past Surgical History Past Surgical Hx: other (See HPI) Social History Alcohol Use: none Smoking Status: Current every day smoker Drug Use: none, other (Heroin cocaine crystal methamphetamine marijuana and others patient is unclear what other recreational drugs street drugs she uses) Exam/Review of Systems Vital Signs Vitals Vital Signs Date Temp Pulse Resp B/P (MAP) Pulse Ox O2 O2 Flow FiO2 Time Delivery Rate 10/25/18 98.3 98 18 100/51 99 08:15 (67) 10/25/18 Room Air 06:32 Exam Constitutional: other (Unkempt multiple scabs head and neck bilateral upper extremities bilateral lower extremities) Psych: anxiety, other (Panicky) Head: normocephalic, atraumatic; No lacerations, No hematomas, No other ENMT: nl external ears & nose, nl lips & teeth, nl nasal mucosa & septum; No mucosa pink and moist, No intubated, No tympanic membranes, No other Neurological: CARTOON ARTIST II-XII intact, nl mental status, nl speech, nl strength, lethargic Skin: other (Left foot grossly edematous and erythematous circumferentially to 5 cm above the ankle large 2 x 2 centimeter eschar without discharge without streaking) Medications Medications Current Medications Sodium Chloride 1,000 ml @ 100 mls/hr Q10H IV Last administered on 10/25/18at 05:19; Admin Dose 100 MLS/HR; Start 10/25/18 at 04:45; Stop 10/25/18 at 23:00 IV Flush (NS 3 ml) 3 ml PER PROTOCOL IV ; Start 10/25/18 at 05:00 Ondansetron HCl (Zofran Inj) 4 mg Q6H PRN IV NAUSEA AND/OR VOMITING; Start 10/25/18 at 05:00 Acetaminophen (Tylenol Tab) 650 mg Q6H PRN PO PAIN LEVEL 1-3 OR FEVER; Start 10/25/18 at 05:00 Acetaminophen/ Hydrocodone Bitart ([place] (5/325)) 1 tab Q6H PRN PO MODERATE PAIN LEVEL 4-6; Start 10/25/18 at 05:00 Acetaminophen/ Hydrocodone Bitart ([place] (5/325)) 2 tab Q6H PRN PO SEVERE PAIN LEVEL 7-10 Last administered on 10/25/18at 06:54; Admin Dose 2 TAB; Start 10/25/18 at 05:00 Heparin Sodium (Porcine) (Heparin (5000 Units/1ml)) 5,000 unit Q12 SC Last administered on 10/25/18at 08:26; Admin Dose 5,000 UNIT; Start 10/25/18 at 09:00 Vancomycin HCl (Vanco Iv Per Pharmacy) VANCOMYCIN PER PHARMACY PER PROTOCOL XX ; Start 10/25/18 at 05:00 Cefepime HCl 50 ml @ 100 mls/hr Q12 IVPB Last administered on 10/25/18at 08:25; Admin Dose 100 MLS/HR; Start 10/25/18 at 09:00 Vancomycin HCl 250 ml @ 125 mls/hr Q8H IVPB Last administered on 10/25/18at 10:04; Admin Dose 125 MLS/HR; Start 10/25/18 at 10:00 Methadone HCl (Methadone) 20 mg Q8 PO ; Start 10/25/18 at 14:00 Miscellaneous Information (*Rx Drug Level Order Reminder*) VANCO TR LEVEL PRIOR... ONCE ONCE XX ; Start 10/26/18 at 09:00; Stop 10/26/18 at 09:01 MARK ROMANO Oct 25, 2018 12:26
[2018-10-25] MEDS ORDERED: NICOTINE POLACRILEX 2 MG GUM BUCCAL PRN (12:30)
--- NOTE | 2018-10-25 12:42 | PN ---
Date/Time of Note Date/Time of Note DATE: 10/25/18 TIME: 12:36 Assessment/Plan VTE Prophylaxis Risk score (from Nsg)>0 risk: 1 SCD applied (from Nsg): Yes Pharmacological prophylaxis: heparin Lines/Catheters IV Catheter Type (from Nrsg): Mid Line Urinary Cath still in place: No Assessment/Plan Assessment/Plan 1. Left foot cellulitis and abscess, antibiotics with cefepime and vanco, follow up with ID and podiatry 2. Polysubstance abuse, including IVDA, on methadone 3. Tobacco dependence, nicotine gum 4. DVP prophylaxis: heparin sq Result Diagram: 10/25/18 0010 10/25/18 0010 Results 24hrs Laboratory Tests Test 10/25/18 00:10 10/25/18 00:24 White Blood Count 17.6 H Red Blood Count 4.08 L Hemoglobin 10.5 L Hematocrit 31.9 L Mean Corpuscular Volume 78.2 L Mean Corpuscular Hemoglobin 25.7 L Mean Corpuscular Hemoglobin Concent 32.9 Red Cell Distribution Width 13.1 Platelet Count 319 Mean Platelet Volume 9.2 Immature Granulocytes % 0.500 H Neutrophils % 78.5 H Lymphocytes % 11.5 L Monocytes % 8.9 Eosinophils % 0.3 Basophils % 0.3 Nucleated Red Blood Cells % 0.0 Immature Granulocytes # 0.090 H Neutrophils # 13.8 H Lymphocytes # 2.0 Monocytes # 1.6 H Eosinophils # 0.1 Basophils # 0.1 Nucleated Red Blood Cells # 0.0 Sodium Level 134 L Potassium Level 3.6 Chloride Level 95 L Carbon Dioxide Level 27 Anion Gap 12 Blood Urea Nitrogen 11 Creatinine 0.62 Est Glomerular Filtrat Rate mL/min > 60 Glucose Level 137 Lactic Acid Level 1.1 Calcium Level 9.0 Total Bilirubin 0.7 Direct Bilirubin 0.00 Indirect Bilirubin 0.7 Aspartate Amino Transf (AST/SGOT) 21 Alanine Aminotransferase (ALT/SGPT) 23 Alkaline Phosphatase 98 Total Protein 7.4 Albumin 3.6 Globulin 3.80 H Albumin/Globulin Ratio 0.94 POC Venous Lactate 1.1 Subjective 24 Hr Interval Summary Free Text/Dictation no fever or chills. less swelling on left foot Exam/Review of Systems Vital Signs Vitals Vital Signs Date Temp Pulse Resp B/P (MAP) Pulse Ox O2 O2 Flow FiO2 Time Delivery Rate 10/25/18 98.3 98 18 100/51 99 08:15 (67) 10/25/18 Room Air 06:32 Exam Constitutional: alert, oriented, well developed Psych: no complaints, nl mood/affect Head: normocephalic, atraumatic Eyes: nl conjunctiva, EOMI, nl lids ENMT: nl external ears & nose, nl lips & teeth, nl nasal mucosa & septum Neck: supple, non-tender Respiratory: clear to auscultation, normal air movement; No congested cough, No crackles/rales, No diminished breath sounds, No intercostal retraction, No labored breathing, No respirations, No tactile fremitus, No wheezing, No other Cardiovascular: regular rate and rhythm, nl pulses; No bruits, No diastolic murmur, No edema, No gallop, No irregular rhythm, No jugular venous distention (JVD), No murmurs/extra sounds, No rub, No systolic murmur, No S3, No S4, No other Gastrointestinal: soft, nl liver, spleen, non-tender Extremities: other (left foot redness, swelling, warmth and tender. Left lower extremity and left foot wound with escar) Neurological: ELEVATOR WORKER II-XII intact, nl mental status, nl speech, nl strength Medications Medications Current Medications Sodium Chloride 1,000 ml @ 100 mls/hr Q10H IV Last administered on 10/25/18at 05:19; Admin Dose 100 MLS/HR; Start 10/25/18 at 04:45; Stop 10/25/18 at 23:00 IV Flush (NS 3 ml) 3 ml PER PROTOCOL IV ; Start 10/25/18 at 05:00 Ondansetron HCl (Zofran Inj) 4 mg Q6H PRN IV NAUSEA AND/OR VOMITING; Start 10/25/18 at 05:00 Acetaminophen (Tylenol Tab) 650 mg Q6H PRN PO PAIN LEVEL 1-3 OR FEVER; Start 10/25/18 at 05:00 Acetaminophen/ Hydrocodone Bitart ([place] (5/325)) 1 tab Q6H PRN PO MODERATE PAIN LEVEL 4-6; Start 10/25/18 at 05:00 Acetaminophen/ Hydrocodone Bitart ([place] (5/325)) 2 tab Q6H PRN PO SEVERE PAIN LEVEL 7-10 Last administered on 10/25/18at 06:54; Admin Dose 2 TAB; Start 10/25/18 at 05:00 Heparin Sodium (Porcine) (Heparin (5000 Units/1ml)) 5,000 unit Q12 SC Last administered on 10/25/18at 08:26; Admin Dose 5,000 UNIT; Start 10/25/18 at 09:00 Vancomycin HCl (Vanco Iv Per Pharmacy) VANCOMYCIN PER PHARMACY PER PROTOCOL XX ; Start 10/25/18 at 05:00 Cefepime HCl 50 ml @ 100 mls/hr Q12 IVPB Last administered on 10/25/18at 08:25; Admin Dose 100 MLS/HR; Start 10/25/18 at 09:00 Vancomycin HCl 250 ml @ 125 mls/hr Q8H IVPB Last administered on 10/25/18at 10:04; Admin Dose 125 MLS/HR; Start 10/25/18 at 10:00 Methadone HCl (Methadone) 20 mg Q8 PO ; Start 10/25/18 at 14:00 Miscellaneous Information (*Rx Drug Level Order Reminder*) VANCO TR LEVEL PRIOR... ONCE ONCE XX ; Start 10/26/18 at 09:00; Stop 10/26/18 at 09:01 Nicotine Polacrilex ([place]) 2 mg Q2H PRN BUCCAL AGITATION/ANXIETY; Start 10/25/18 at 12:30 KENN HERNANDEZ MD Oct 25, 2018 12:42
[2018-10-25] MEDS: METHADONE 10 MG TAB PO SCH ×2 (13:47→21:04)
[2018-10-25 14:24] VITALS: BP 106/57; PULSE 84; RESP 18
[2018-10-25] MEDS ORDERED: LIDOCAINE 1% (MPF) 30 ML INJ INJ PRN (16:30)
[2018-10-25] MEDS ORDERED: LIDOCAINE 1% (MDV) 20 ML INJ ONE (16:49)
--- NOTE | 2018-10-25 18:59 | CONS ---
Date/Time of Note Date/Time of Note DATE: 10/25/18 TIME: 18:57 Assessment/Plan Assessment/Plan Assessment/Plan Left foot abscess Left foot non pressure ulcer Left lower extremity cellulitis IV heroin drug abuse Polysubstance drug abuser Pain in limb Edema Leukocytosis Plan Consent was obtained for wound debridement and incision and drainage, however patient was unable to tolerate procedure. Wound cultures were obtained. Nursing recommendations for daily dressing changes. Plan for OR procedure. Continue with IV abx. X-rays reviewed no soft tissue emphysema or gas appreciated. Result Diagram: 10/25/18 0010 10/25/18 0010 Results 24hrs Laboratory Tests Test 10/25/18 00:10 10/25/18 00:24 White Blood Count 17.6 H Red Blood Count 4.08 L Hemoglobin 10.5 L Hematocrit 31.9 L Mean Corpuscular Volume 78.2 L Mean Corpuscular Hemoglobin 25.7 L Mean Corpuscular Hemoglobin Concent 32.9 Red Cell Distribution Width 13.1 Platelet Count 319 Mean Platelet Volume 9.2 Immature Granulocytes % 0.500 H Neutrophils % 78.5 H Lymphocytes % 11.5 L Monocytes % 8.9 Eosinophils % 0.3 Basophils % 0.3 Nucleated Red Blood Cells % 0.0 Immature Granulocytes # 0.090 H Neutrophils # 13.8 H Lymphocytes # 2.0 Monocytes # 1.6 H Eosinophils # 0.1 Basophils # 0.1 Nucleated Red Blood Cells # 0.0 Erythrocyte Sedimentation Rate 8 Sodium Level 134 L Potassium Level 3.6 Chloride Level 95 L Carbon Dioxide Level 27 Anion Gap 12 Blood Urea Nitrogen 11 Creatinine 0.62 Est Glomerular Filtrat Rate mL/min > 60 Glucose Level 137 Lactic Acid Level 1.1 Calcium Level 9.0 Total Bilirubin 0.7 Direct Bilirubin 0.00 Indirect Bilirubin 0.7 Aspartate Amino Transf (AST/SGOT) 21 Alanine Aminotransferase (ALT/SGPT) 23 Alkaline Phosphatase 98 C-Reactive Protein 23.0 H Total Protein 7.4 Albumin 3.6 Globulin 3.80 H Albumin/Globulin Ratio 0.94 POC Venous Lactate 1.1 Consultation Date/Type/Reason Admit Date/Time Oct 25, 2018 at 02:48 Hx of Present Illness 33 y/o F patient IV heroin abuser states she injected into her foot and noticed increased redness and pain. Patient reported fevers and chills. Patient injected a couple of days ago and then reported to the ED immediately when symptoms were worsening. Denies any medical history. ROS: negative except for HPI Past Medical History denies Medications Current Medications Sodium Chloride 1,000 ml @ 100 mls/hr Q10H IV Last administered on 10/25/18at 17:31; Admin Dose 100 MLS/HR; Start 10/25/18 at 04:45; Stop 10/25/18 at 23:00 IV Flush (NS 3 ml) 3 ml PER PROTOCOL IV ; Start 10/25/18 at 05:00 Ondansetron HCl (Zofran Inj) 4 mg Q6H PRN IV NAUSEA AND/OR VOMITING; Start 10/25/18 at 05:00 Acetaminophen (Tylenol Tab) 650 mg Q6H PRN PO PAIN LEVEL 1-3 OR FEVER; Start 10/25/18 at 05:00 Acetaminophen/ Hydrocodone Bitart ([place] (5/325)) 1 tab Q6H PRN PO MODERATE PAIN LEVEL 4-6; Start 10/25/18 at 05:00 Acetaminophen/ Hydrocodone Bitart ([place] (5/325)) 2 tab Q6H PRN PO SEVERE PAIN LEVEL 7-10 Last administered on 10/25/18at 06:54; Admin Dose 2 TAB; Start 10/25/18 at 05:00 Heparin Sodium (Porcine) (Heparin (5000 Units/1ml)) 5,000 unit Q12 SC Last administered on 10/25/18at 08:26; Admin Dose 5,000 UNIT; Start 10/25/18 at 09:00 Vancomycin HCl (Vanco Iv Per Pharmacy) VANCOMYCIN PER PHARMACY PER PROTOCOL XX ; Start 10/25/18 at 05:00 Cefepime HCl 50 ml @ 100 mls/hr Q12 IVPB Last administered on 10/25/18at 08:25; Admin Dose 100 MLS/HR; Start 10/25/18 at 09:00 Vancomycin HCl 250 ml @ 125 mls/hr Q8H IVPB Last administered on 10/25/18at 17:30; Admin Dose 125 MLS/HR; Start 10/25/18 at 10:00 Methadone HCl (Methadone) 20 mg Q8 PO Last administered on 10/25/18at 13:47; Admin Dose 20 MG; Start 10/25/18 at 14:00 Miscellaneous Information (*Rx Drug Level Order Reminder*) VANCO TR LEVEL PRIOR... ONCE ONCE XX ; Start 10/26/18 at 09:00; Stop 10/26/18 at 09:01 Nicotine Polacrilex (Nicorette) 2 mg Q2H PRN BUCCAL AGITATION/ANXIETY; Start 10/25/18 at 12:30 Sodium Hypochlorite ([place]akin[place] (Dilute )) 1 applic DAILY IRR ; Start 10/26/18 at 09:00 Lidocaine (Xylocaine 1% (Mpf)) 30 ml ONCE PRN INJ pain; Start 10/25/18 at 16:30 Allergies: Coded Allergies: No Known Allergy (Unverified , 10/24/18) Past Surgical History none reported Family History Significant Family History: no pertinent family hx Social History Alcohol Use: none Smoking Status: Current every day smoker Drug Use: other (Heroin cocaine crystal methamphetamine marijuana and others patient is unclear what other recreational drugs street drugs she uses) Exam/Review of Systems Vital Signs Vitals Vital Signs Date Temp Pulse Resp B/P (MAP) Pulse Ox O2 O2 Flow FiO2 Time Delivery Rate 10/25/18 97.8 84 18 106/57 100 14:24 (73) 10/25/18 Room Air 06:32 Exam DP/PT pulses palpable Protective sensations intact Left foot ulcer 1.5 x 1.5 x 0.6cm with underlying abscess. Fibro necrotic wound base. There is tunneling and undermining appreciated. Purulence is appreciated Erythema noted to the foot 2+ pitting edema appreciated Pain at ulceration site Medial calf stable eschar firmly adhered. Muscle strength 5/5 in all compartments of the foot. Medications Medications Current Medications Sodium Chloride 1,000 ml @ 100 mls/hr Q10H IV Last administered on 10/25/18at 17:31; Admin Dose 100 MLS/HR; Start 10/25/18 at 04:45; Stop 10/25/18 at 23:00 IV Flush (NS 3 ml) 3 ml PER PROTOCOL IV ; Start 10/25/18 at 05:00 Ondansetron HCl (Zofran Inj) 4 mg Q6H PRN IV NAUSEA AND/OR VOMITING; Start 10/25/18 at 05:00 Acetaminophen (Tylenol Tab) 650 mg Q6H PRN PO PAIN LEVEL 1-3 OR FEVER; Start 10/25/18 at 05:00 Acetaminophen/ Hydrocodone Bitart ([place] (5/325)) 1 tab Q6H PRN PO MODERATE PAIN LEVEL 4-6; Start 10/25/18 at 05:00 Acetaminophen/ Hydrocodone Bitart ([place] (5/325)) 2 tab Q6H PRN PO SEVERE PAIN LEVEL 7-10 Last administered on 10/25/18at 06:54; Admin Dose 2 TAB; Start at 05:00 Heparin Sodium (Porcine) (Heparin (5000 Units/1ml)) 5,000 unit Q12 SC Last administered on 10/25/18at 08:26; Admin Dose 5,000 UNIT; Start 10/25/18 at 09:00 Vancomycin HCl (Vanco Iv Per Pharmacy) VANCOMYCIN PER PHARMACY PER PROTOCOL XX ; Start 10/25/18 at 05:00 Cefepime HCl 50 ml @ 100 mls/hr Q12 IVPB Last administered on 10/25/18at 08:25; Admin Dose 100 MLS/HR; Start 10/25/18 at 09:00 Vancomycin HCl 250 ml @ 125 mls/hr Q8H IVPB Last administered on 10/25/18at 17:30; Admin Dose 125 MLS/HR; Start 10/25/18 at 10:00 Methadone HCl (Methadone) 20 mg Q8 PO Last administered on 10/25/18at 13:47; Admin Dose 20 MG; Start 10/25/18 at 14:00 Miscellaneous Information (*Rx Drug Level Order Reminder*) VANCO TR LEVEL PRIOR... ONCE ONCE XX ; Start 10/26/18 at 09:00; Stop 10/26/18 at 09:01 Nicotine Polacrilex (Nicorette) 2 mg Q2H PRN BUCCAL AGITATION/ANXIETY; Start 10/25/18 at 12:30 Sodium Hypochlorite (Dakin'S (Dilute 1/40)) 1 applic DAILY IRR ; Start 10/26/18 at 09:00 Lidocaine (Xylocaine 1% (Mpf)) 30 ml ONCE PRN INJ pain; Start 10/25/18 at 16:30 NICOL RODAS DPM Oct 25, 2018 18:59
[2018-10-25 20:00] VITALS: BP 99/53; PULSE 87; RESP 18
[2018-10-26] MEDS: VANCOMYCIN 1 GM 250 ML IVPB SCH (01:58)
[2018-10-26 02:00] VITALS: BP 97/55; PULSE 83; RESP 19
[2018-10-26] MEDS ORDERED: SODIUM HYPOCHLORITE (1/40) 1 APPLIC BTL IRR SCH (09:00)
--- NOTE | 2018-11-15 06:47 | DS ---
Date/Time of Note Date/Time of Note DATE: 11/15/18 TIME: 16:23 Discharge Summary Admission/Discharge Info Admit Date/Time Oct 25, 2018 at 02:48 Discharge Date/Time Oct 26, 2018 at 04:45 Discharge Diagnosis Left foot abscess and overlying Cellulitis Patient Condition: Serious Hx of Present Illness This is a 33-year-old female with a history of meds and IV drug use who presents the ER complaining of left foot swelling and redness. She states she was injecting on that foot. Last use of heroin was yesterday and patient thinks that she is also going through withdrawal When she presented to ER, she was afebrile. WBC almost 18,000. X-ray shows soft tissue swelling. Venous study negative for DVT Hospital Course Patient was started on IV abx right away. Seen by podiatry Consent was obtained for wound debridement and incision and drainage, however patient was unable to tolerate procedure. Wound culture was positive for strep Pyogenes Given hx of IVDU, she was started on methadone. unfortunately, she left AMA. Home Meds Unable to Obtain Active Prescriptions or Reported Meds Primary Care Provider Care Physician No Primary ELIF ROCA MD Nov 15, 2018 06:43
== END 2018-10-26 04:45 | disposition left against medical advice (07) | DRG 603 ==
LOC: FTE 22:07 → PP2 10-25 02:48
PROVIDERS: ADMIT Internal Medicine; ATTEND Internal Medicine
DX: L02.612 Cutaneous abscess of left foot (principal); L03.116 Cellulitis of left lower limb; F15.10 Other stimulant abuse, uncomplicated; F11.10 Opioid abuse, uncomplicated; D64.9 Anemia, unspecified; Z72.0 Tobacco use; L97.529 Non-pressure chronic ulcer of other part of left foot with unspecified severity
CPT/HCPCS: 73590; 73610; 80053; 81001; 81003; 83605; 85025; 85651; 86140; 87040; 87070; 87081; 93971; 96365; 96375; J0692; J1170; J1200; J1644; J1885; J2270; J2405; J2543; J3370; J7030